=== PATIENT | male | born 1990 | race Caucasian/White ===

== ENCOUNTER 2023-03-21 10:18 | Inpatient (IN) | payer OTHER ==
[2023-03-21] MEDS ORDERED: BENZOCAINE/MENTHOL (CHLORASEPTIC ) LOZENGE MM PRN (11:31)
[2023-03-21] MEDS ORDERED: NALOXONE HCL 0.4 MG/ML VIAL IM PRN (11:31)
[2023-03-21] MEDS ORDERED: guaiFENesin 600 MG TABLET.ER (FP) PO PRN (11:31)
[2023-03-21] MEDS ORDERED: cloNIDine HCL 0.1 MG TABLET PO ONE (11:31)
[2023-03-21] MEDS ORDERED: ONDANSETRON *ODT* 4 MG TABLET SL PRN (11:31)
[2023-03-21] MEDS ORDERED: MAGNESIUM HYDROX 2400MG/30ML ORAL SUSPENSION 30 ML CUP PO PRN (11:31)
[2023-03-21] MEDS ORDERED: MAG HYDROX/AL HYDROX/SIMETH 30 ML UNIT-DOSE CUP PO PRN (11:31)
[2023-03-21] MEDS ORDERED: BENZONATATE 200 MG CAPSULE PO PRN (11:31)
[2023-03-21] MEDS ORDERED: POLYETHYLENE GLYCOL (HEALTHYLAX) 3350 17 GM PACKET PO PRN (11:31)
[2023-03-21] MEDS ORDERED: BUPRENORPHINE HCL 150 MCG, BUPRENORPHINE HCL 75 MCG BC PRN (11:31)
[2023-03-21] MEDS ORDERED: IBUPROFEN 400 MG TABLET (FP) PO PRN (11:31)
[2023-03-21] MEDS ORDERED: LOPERAMIDE HCL 2 MG CAPSULE PO PRN (11:31)
[2023-03-21] MEDS ORDERED: ACETAMINOPHEN 325 MG TABLET (FP) PO PRN (11:31)
[2023-03-21] MEDS ORDERED: IBUPROFEN 600 MG TABLET (FP) PO PRN (11:31)
[2023-03-21] MEDS ORDERED: DICYCLOMINE HCL 10 MG CAPSULE PO PRN (11:31)
[2023-03-21] MEDS ORDERED: BISMUTH SUBSALICYLATE 262 MG/15 ML BTL PO PRN (11:31)
[2023-03-21] MEDS ORDERED: NALOXONE HCL (KLOXXADO) 8 MG SPRAY NS PRN (11:31)
[2023-03-21] MEDS ORDERED: BUPRENORPHINE HCL 150 MCG, BUPRENORPHINE HCL 75 MCG BC ONE (11:31)
[2023-03-21 11:41] VITALS: BMI 33.6
[2023-03-21] MEDS ORDERED: BUPRENORPHINE HCL 150 MCG FILM BC ONE (12:43)
[2023-03-21] MEDS ORDERED: NICOTINE 7 MG/24 HOURS TOPICAL PATCH TD ONE (12:44)
[2023-03-21] MEDS ORDERED: BUPRENORPHINE HCL 75 MCG FILM BC ONE (12:44)
[2023-03-21] MEDS ORDERED: PRENATAL VITAMINS W/ FOLIC ACID TABLET (FP) PO ONE (12:44)
[2023-03-21] MEDS ORDERED: cloNIDine HCL 0.1 MG TABLET ONE (12:44)
[2023-03-21] MEDS: PRENATAL VITAMINS W/ FOLIC ACID TABLET (FP) PO SCH (12:51)
[2023-03-21] MEDS: NICOTINE 7 MG/24 HOURS TOPICAL PATCH TD SCH (12:51)
[2023-03-21] MEDS ORDERED: cloNIDine HCL 0.1 MG TABLET PO PRN (15:32)
[2023-03-21 16:21] LABS: HEMATOCRIT 45.2 % (35.4-49); HEMOGLOBIN 15.6 GM/dL (11.7-16.9); MCH 29.8 pg (25.7-33.7); MCHC 34.5 g/dl (32.0-35.9); MEAN CELL VOLUME 86.3 fl (80-96); MEAN PLT VOLUME 8.3 fl (7.5-11.1); PLATELET COUNT 314 10^3/uL (134-434); RBC 5.24 M/mm3 (4.00-5.60); RDW 12.8 % (11.9-15.9); WHITE BLOOD COUNT 8.2 K/mm3 (4.0-10.0)
[2023-03-21 16:26] LABS: POTASSIUM 4.3 mmol/L (3.5-5.1)
[2023-03-21 16:33] LABS: CALCIUM 9.6 mg/dL (8.5-10.1)
[2023-03-21 16:34] LABS: ALBUMIN 3.9 g/dl (3.4-5.0); BLOOD UREA NITROGEN 14.6 mg/dL (7-18)
[2023-03-21 16:37] LABS: CREATININE 1.1 mg/dL (0.55-1.3)
[2023-03-21 16:38] LABS: BILIRUBIN,TOTAL 0.7 mg/dL (0.2-1)
[2023-03-21 16:39] LABS: TOT PROT 7.9 g/dl (6.4-8.2)
[2023-03-21] MEDS: diazePAM 5 MG TABLET PO PRN (22:24)
[2023-03-21] MEDS: MELATONIN 5 MG TABLETS PO SCH (22:25)
[2023-03-21] MEDS: METHOCARBAMOL 500 MG TABLET PO PRN (22:25)
[2023-03-21] MEDS: THIAMINE HCL 100 MG TABLET (FP) PO SCH (22:26)
[2023-03-22] MEDS ORDERED: BUPRENORPHINE HCL 150 MCG, BUPRENORPHINE HCL 75 MCG BC PRN
[2023-03-22] MEDS: BUPRENORPHINE HCL 150 MCG, BUPRENORPHINE HCL 75 MCG BC SCH ×2 (05:35→17:20)
[2023-03-22] MEDS: PRENATAL VITAMINS W/ FOLIC ACID TABLET (FP) PO SCH (10:09)
[2023-03-22] MEDS: diazePAM 5 MG TABLET PO PRN ×2 (10:09→22:15)
[2023-03-22] MEDS: METHOCARBAMOL 500 MG TABLET PO PRN ×2 (10:09→22:14)
[2023-03-22] MEDS: NICOTINE 7 MG/24 HOURS TOPICAL PATCH TD SCH (10:09)
[2023-03-22] MEDS: THIAMINE HCL 100 MG TABLET (FP) PO SCH (22:14)
[2023-03-22] MEDS: MELATONIN 5 MG TABLETS PO SCH (22:14)
[2023-03-23] MEDS: hydrOXYzine PAMOATE 25 MG CAPSULE (FP) PO PRN ×2 (01:46→22:36)
[2023-03-23] MEDS: BUPRENORPHINE HCL 450 MCG FILM BC SCH ×2 (05:15→18:46)
[2023-03-23] MEDS: PRENATAL VITAMINS W/ FOLIC ACID TABLET (FP) PO SCH (09:38)
[2023-03-23] MEDS: METHOCARBAMOL 500 MG TABLET PO PRN ×2 (09:38→22:36)
[2023-03-23] MEDS: diazePAM 5 MG TABLET PO PRN (09:38)
[2023-03-23] MEDS: NICOTINE 7 MG/24 HOURS TOPICAL PATCH TD SCH (09:39)
[2023-03-23] MEDS: MELATONIN 5 MG TABLETS PO SCH (22:35)
[2023-03-23] MEDS: THIAMINE HCL 100 MG TABLET (FP) PO SCH (22:35)
[2023-03-24] MEDS: BUPRENORPHINE/NALOXONE 4 MG/1 MG FILM PACKET SL SCH ×2 (05:19→17:56)
[2023-03-24] MEDS: NICOTINE 7 MG/24 HOURS TOPICAL PATCH TD SCH (10:07)
[2023-03-24] MEDS: PRENATAL VITAMINS W/ FOLIC ACID TABLET (FP) PO SCH (10:07)
[2023-03-24] MEDS: METHOCARBAMOL 500 MG TABLET PO PRN ×2 (10:09→21:36)
[2023-03-24] MEDS: THIAMINE HCL 100 MG TABLET (FP) PO SCH (21:36)
[2023-03-24] MEDS: hydrOXYzine PAMOATE 25 MG CAPSULE (FP) PO PRN (21:36)
[2023-03-24] MEDS: MELATONIN 5 MG TABLETS PO SCH (21:36)
[2023-03-25] MEDS ORDERED: BUPRENORPHINE/NALOXONE 8 MG/2 MG FILM PACKET SL ONE (06:00)
[2023-03-25 06:40] VITALS: RESP 18
[2023-03-25 09:16] VITALS: BP 121/70; PULSE 90; TEMP 97.8
== END 2023-03-25 09:48 | disposition home or self-care (01) | DRG 773 ==
LOC: YASAS 10:18 → Y3N 12:18
PROVIDERS: ADMIT Allergy & Immunology; ATTEND Surgery
PROC: HZ2ZZZZ Detoxification Services for Substance Abuse Treatment (ICD-10-PCS; principal; 2023-03-21)
DX: F11.23 Opioid dependence with withdrawal (principal); F12.20 Cannabis dependence, uncomplicated; F13.10 Sedative, hypnotic or anxiolytic abuse, uncomplicated; F17.210 Nicotine dependence, cigarettes, uncomplicated; U07.1 COVID-19
CPT/HCPCS: 36415; 80053; 80307; 85027; 86780; 87635; 87811; 93005; 93010